=== PATIENT | female | born 2005 | race African-American/Black ===

== ENCOUNTER 2024-06-14 00:03 | Emergency (ER) | payer OTHER, SELFPAY ==
--- NOTE | 2024-06-14 01:09 | ED_ITS ---
HPI - Psych General Chief Complaint: Psychiatric Symptoms Stated Complaint: voluntary admit Time Seen by Provider: 06/14/24 00:22 History of Present Illness HPI Narrative: Patient is a 18-year-old female who presents ER with concerns over self-harm behavior. She reports she has started cutting herself over the last 2 months. No specific stressors. She has no suicidal ideation or homicidal ideation. Her friends became concerned when they discovered that she had cut herself and urged her to come here to be evaluated and possibly admitted for psychiatric care. Patient has no previous diagnoses of depression. She has not been medicated. Denies drug or alcohol use. The cut at issue is to the left wrist and is almost not visible. Review of Systems Review of Systems: All systems reviewed & are unremarkable except as noted in HPI and below PMFSH Past Medical History Medical History (Updated 06/14/24 @ 06:20 by Reji Mccarthy MD) Healthy female adult Surgical History Surgical History (Updated 06/14/24 @ 01:11 by Reji Mccarthy MD) No history of previous surgery Exam Narrative: GENERAL: Well-appearing, well-nourished, and in no acute distress. HEAD: Normocephalic, atraumatic. EYES: PERRL and EOMI. ENT: Mucous membranes moist. CHEST: Clear to auscultation. No respiratory distress. HEART: Regular rate and rhythm. Normal peripheral pulses. ABDOMEN: Soft, nontender, nondistended. EXTREMITIES: Normal range of motion. No edema. SKIN: Warm, dry, no rash. NEURO: Alert and oriented x3. PSYCH: Normal mood and affect. Course Course Emergency Course: Patient was medically cleared for evaluation by crisis. After speaking with them a safety contract/plan was developed. Patient appropriate for discharge. Vital Signs Vital signs: Vital Signs Temperature 97.9 F 06/14/24 02:21 Pulse Rate 63 06/14/24 02:21 Respiratory Rate 13 06/14/24 02:21 Blood Pressure 112/62 06/14/24 02:21 Pulse Oximetry 100 06/14/24 02:21 Temperature 97.9 F 06/14/24 02:21 Pulse Rate 63 06/14/24 02:21 Respiratory Rate 13 06/14/24 02:21 Blood Pressure 112/62 06/14/24 02:21 Pulse Oximetry 100 06/14/24 02:21 MDM - Psych Lab Data 06/14/24 01:18 06/14/24 01:18 Labs: Lab Results 06/14/24 06/14/24 06/14/24 Range/Units 01:18 01:43 02:40 WBC 5.3 (4.5-10.0) K/mm3 RBC 4.72 (4.2-5.4) M/mm3 Hgb 13.0 (12.0-15.0) g/dL Hct 39.8 (37.0-47.0) % MCV 84.3 (80-100) fl MCH 27.5 (26-34) pg MCHC 32.7 (32-36) g/dl RDW 13.2 (11.5-14.5) % Plt Count 299 (150-375) k/mm3 MPV 9.8 (7.4-10.4) fl Immature Gran % (Auto) 0.4 (0-0.5) % Neut % (Auto) 58.0 (45.5-73.1) % Lymph % (Auto) 29.0 (18.3-44.2) % [place] % (Auto) 10.8 H (2.6-8.5) % Eos % (Auto) 0.9 (0-4.4) % Baso % (Auto) 0.9 (0.2-1.2) % Lymph # (Auto) 1.53 (0.9-3.2) K/mm3 [place] # (Auto) 0.6 (0.1-0.6) K/mm3 Eos # (Auto) 0.1 (0-0.3) K/mm3 Baso # (Auto) 0.1 (0.0-0.1) K/mm3 Abs Immat Gran (auto) 0.02 (0.00-0.031) K/mm3 Absolute Neuts (auto) 3.1 (1.3-6.7) K/mm3 Absolute Nucleated RBC 0.000 (0.0-0.012) K/mm3 Nucleated RBC % 0.0 (0.0-0.2) % Sodium 139 (137-145) mmol/L Potassium 3.6 (3.4-5.0) mmol/L Chloride 103 (98-107) mmol/L Carbon Dioxide 28 (22-30) mmol/L Anion Gap 8 (4-12) mmol/L BUN 10 (7-17) mg/dL Creatinine 0.80 (0.7-1.0) mg/dL Estim Creat Clear Calc Not Reportable Estimated GFR > 60 (59 - ) Glucose 100 (65-110) mg/dL Calcium 9.8 (8.4-10.2) mg/dL Total Bilirubin 0.5 (0.2-1.3) mg/dL AST 41 H (14-36) U/L ALT 19 (6-35) U/L Alkaline Phosphatase 70 (38-126) U/L Total Protein 9.0 H (6.3-8.2) g/dL Albumin 4.7 (3.5-5.1) g/dL TSH 1.520 (0.465-4.680) uIU/mL Urine Color Yellow (Yellow) Urine Appearance Clear (Clear) Urine pH 6.0 (5.0-9.0) Ur Specific [place] 1.017 (1.001-1.035) Urine Protein Negative (Negative) mg/dL Urine Glucose (UA) Negative (Negative) mg/dL Urine Ketones 1+ H (Negative) mg/dL Ur Blood (Man) Negative (Negative) Urine Nitrate Negative (Negative) Urine Bilirubin Negative (Negative) Urine Urobilinogen 0.2 (<2.0) mg/dL Leukocyte Esterase Rfl 3+ H (Negative) ADRIANO/UL Urine RBC 0-2 (0-2) /hpf Urine WBC 21-50 H (0-3) /hpf Ur Squamous Epith Cells Occasional (Few) /hpf Urine Bacteria None seen /hpf Urine Casts 0-2 POC Urine HCG, Qual Negative (Negative) Urine Opiates Screen Negative (Negative) Urine Methadone Screen Negative (Negative) Ur Barbiturates Screen Negative (Negative) Ur Phencyclidine Scrn Negative (Negative) Ur Amphetamine Screen Negative (Negative) U Benzodiazepines Scrn Negative (Negative) Urine Cocaine Screen Negative (Negative) U Cannabinoids Screen Negative (Negative) Ethyl Alcohol < 10 (<10) mg/dL Influenza A (RT-PCR) Negative (Negative) Influenza B (RT-PCR) Negative (Negative) RSV (RT-PCR) Negative (Negative) SARS-CoV-2 RNA (RT-PCR) Negative (Negative) Discharge Plan Discharge Clinical Impression: Deliberate self-cutting Patient Disposition: Home, Self-Care Condition: Stable Additional Instructions: Adhere to the safety plan developed with crisis. Return to the ER if you have thoughts of taking her own life, taking fly from others, or feel like any additional mental health evaluation. Follow-up/Referrals: [facility] [Outside] - 1 Week NON-NURSING STAFF,ADMISSIONS [Primary Care Provider] - 1 Week
[2024-06-14 01:29] LABS: Basophils Absolute Auto 0.1 K/mm3 (0.0-0.1); Basophils Percent Auto 0.9 % (0.2-1.2); Eosinophils Absolute Auto 0.1 K/mm3 (0-0.3); Eosinophils Percent Auto 0.9 % (0-4.4); Hematocrit 39.8 % (37.0-47.0); Immature Granulocyte Absolute 0.02 K/mm3 (0.00-0.031); Immature Granulocyte Percent A 0.4 % (0-0.5); Lymphocytes Absolute Auto 1.53 K/mm3 (0.9-3.2); Mean Corpuscular HGB Conc 32.7 g/dl (32-36); Mean Corpuscular Hemoglobin 27.5 pg (26-34); Mean Corpuscular Volume 84.3 fl (80-100); Mean Platelet Volume 9.8 fl (7.4-10.4); Monocytes Absolute Auto 0.6 K/mm3 (0.1-0.6); Monocytes Percent Auto 10.8 % (2.6-8.5); Neutrophils Absolute Auto 3.1 K/mm3 (1.3-6.7); Platelet Count Result 299 k/mm3 (150-375); Red Blood Count 4.72 M/mm3 (4.2-5.4); Red Cell Distribution Width 13.2 % (11.5-14.5); White Blood Count 5.3 K/mm3 (4.5-10.0)
[2024-06-14 01:33] LABS: Add Urine Microscopic? YES; Appearance Urine Clear (Clear); Bacteria Urine None Seen /hpf; Bilirubin Urine Negative (Negative); Blood Urine Negative (Negative); Color Urine Yellow (Yellow); Glucose Urine UA Negative (Negative); Ketones Urine 1+ mg/dL (Negative); Leukocyte Esterase Ur 3+ LEU/UL (Negative); Nitrate Urine Negative (Negative); Non Pathogenic Casts 0-2; Protein Urine Negative (Negative); RBC Urine 0-2 /hpf (0-2); Specific Grav Ur 1.017 (1.001-1.035); Squamous Epithelial Cell Urine Occasional /hpf (Few); Urobilinogen Urine 0.2 mg/dL (<2.0); WBC Urine 21-50 /hpf (0-3)
[2024-06-14 01:40] LABS: Ethanol < 10 mg/dL (<10)
[2024-06-14 01:46] LABS: BEDSIDEPREGUCG Negative (Negative)
[2024-06-14 01:49] LABS: Albumin Level 4.7 g/dL (3.5-5.1); Alkaline Phosphatase 70 U/L (38-126); Aspartate Amino Transferase 41 U/L (14-36); Bilirubin,Total 0.5 mg/dL (0.2-1.3); Blood Urea Nitrogen 10 mg/dL (7-17); Calcium 9.8 mg/dL (8.4-10.2); Carbon Dioxide 28 mmol/L (22-30); Chloride 103 mmol/L (98-107); Estimated Glomerular Filt Rate > 60; Glucose 100 mg/dL (65-110)
[2024-06-14 01:51] LABS: Alanine Aminotransferase 19 U/L (6-35); Anion Gap 8 mmol/L (4-12); Potassium 3.6 mmol/L (3.4-5.0); Sodium 139 mmol/L (137-145)
[2024-06-14 02:04] LABS: Amphetamine Screen Urine Negative (Negative); Barbiturate Screen Urine Negative (Negative); Benzodiazepines Screen Urine Negative (Negative); Cannabinoid Screen Urine Negative (Negative); Cocaine Screen Urine Negative (Negative); Methadone Screen Urine Negative (Negative); Opiate Screen Urine Negative (Negative); Phencyclidine Screen Urine Negative (Negative)
[2024-06-14 02:21] VITALS: BP 112/62; PULSE 63; RESP 13; TEMP 36.6; O2SAT 100
[2024-06-14] MEDS: CEPHALEXIN 500 MG CAPSULE PO (03:06)
[2024-06-14 03:20] LABS: Influenza A QL RT-PCR Negative (Negative); Influenza B QL RT-PCR Negative (Negative); RSV RNA, RT-PCR Negative (Negative); SARS-CoV-2 RNA PCR Negative (Negative)
--- NOTE | 2024-06-14 04:06 | PC.NURSE ---
This RN called Crisis. Crisis will send a time out.
--- NOTE | 2024-06-14 05:29 | PC.NURSE ---
Crisis arrived to speak with pt
== END 2024-06-14 06:48 | disposition home or self-care (01) ==
PROVIDERS: Emergency Provider Emergency Medicine
DX: R45.88 Nonsuicidal self-harm (principal); Z11.52 Encounter for screening for COVID-19
CPT/HCPCS: 36415; 80053; 80307; 81001; 81025; 82077; 84443; 85025; 87086; 87637; 99284; A9270